=== PATIENT | female | born 1960 | race Caucasian/White ===

== ENCOUNTER 2018-11-21 11:06 | Emergency (ER) | payer SELFPAY ==
[2018-11-21] MEDS: ONDANSETRON (ODT) 4 MG TAB ODT (12:25)
== END 2018-11-21 12:51 | disposition home or self-care (01) ==
LOC: FTE 12:51
DX: K52.9 Noninfective gastroenteritis and colitis, unspecified (principal)
CPT/HCPCS: 99283